=== PATIENT | male | born 1985 | race Caucasian/White ===

== ENCOUNTER 2018-03-17 08:44 | Emergency (ER) | payer OTHER ==
[~2018-03-17] VITALS: Ht 170.2 cm; Wt 73.0 kg
[2018-03-17] MEDS ORDERED: PROPOFOL 10 MG/ML, 20ML ONE (09:32)
[2018-03-17] MEDS ORDERED: PROPOFOL 10 MG/ML, 20ML IVPush ONE (10:30)
[2018-03-17 10:43] VITALS: BP 111/72
== END 2018-03-17 10:45 | disposition home or self-care (01) ==
LOC: ED 10:39
DX: S43.005A Unspecified dislocation of left shoulder joint, initial encounter (principal); X58.XXXA Exposure to other specified factors, initial encounter; Y93.89 Activity, other specified; Y92.69 Other specified industrial and construction area as the place of occurrence of the external cause; Y99.0 Civilian activity done for income or pay
CPT/HCPCS: 23650; 73030; 99285; J2704